=== PATIENT | female | born 1935 | race Caucasian/White ===

== ENCOUNTER 2018-01-10 09:57 | Emergency (ER) | payer MEDICARE ==
[~2018-01-10] VITALS: Ht 167.6 cm; Wt 72.5 kg
[~2018-01-10 09:57] MED LIST: ASPI81 PO; ATOR10 PO; CLOP75 PO; LEVO100T60 PO; OCUVTAB PO
[2018-01-10 10:17] VITALS: BP 145/72; PULSE 63; RESP 16; TEMP 98; O2SAT 97
--- NOTE | 2018-01-10 10:27 | PD ---
HPI . Weakness Chief Complaint: General Weakness Time Seen by Provider: 10:14 Travel History International Travel<30 days: No Contact w/Intl Traveler<30days: No Traveled to known affect area: No History of Present Illness HPI History is obtained from the patient and her daughter. Chief complaint is weakness. Onset was this morning on awakening. It is associated with a headache and nausea. She was treated per [facility] with Zofran with improvement in the nausea. No modifying factors. No other associated symptoms. PFSH Past Medical History Hx Anticoagulant Therapy: Yes (plavix) Arthritis: No Asthma: No Cancer: No High Cholesterol: Yes Chemotherapy: No Chest Pain: No Congestive Heart Failure: No COPD: No Cerebrovascular Accident: Yes Diabetes: No Diminished Hearing: No Headaches: Yes Hypertension: No Implanted Vascular Access Dvce: No Musculoskeletal: No Psychiatric: No Migraines: Yes Myocardial Infarction: No Radiation Therapy: No Seizures: No Thyroid Disease: Yes Tetanus Vaccination: > 5 Years Influenza Vaccination: Yes Menopausal: Yes Past Surgical History Abdominal Surgery: Yes Appendectomy: Yes Cardiac Surgery: No Ear Surgery: No Endocrine Surgery: No Eye Surgery: Yes (2005) Genitourinary Surgery: No Gynecologic Surgery: Yes (1964) Neurologic Surgery: No Oral Surgery: Yes Thoracic Surgery: No Tonsillectomy: Yes Other Surgery: No Social History Alcohol Use: Yes (OCCASIONAL) Tobacco Use: No Substance Use: No Allergies-Medications (Allergen,Severity, Reaction): Coded Allergies: penicillin G (Unverified Allergy, Severe, RASH, 03/18/17) Reported Meds & Prescriptions Reported Meds & Active Scripts Active Reported Atorvastatin (Atorvastatin Calcium) 10 Mg Tab 10 Mg PO HS Synthroid (Levothyroxine Sodium) 88 Mcg Tab 88 Mcg PO DAILY Plavix (Clopidogrel Bisulfate) 75 Mg Tab 75 Mg PO DAILY Review of Systems Except as stated in HPI: all other systems reviewed are Neg General / Constitutional: No: Fever, Chills Eyes: No: Blurred Vision, Photophobia HENT: Positive: Headaches Cardiovascular: No: Chest Pain or Discomfort Respiratory: No: Shortness of Breath Gastrointestinal: Positive: Nausea, No: Vomiting, Diarrhea, Abdominal Pain Genitourinary: No: Urgency, Frequency, Dysuria Neurologic: Positive: Weakness, No: Focal Abnormalities Physical Exam Narrative GENERAL: Elderly woman who is lying on the stretcher in no acute distress. SKIN: warm/dry. HEAD: Normocephalic. Atraumatic. EYES: Pupils equal and round. Extraocular movements are intact. ENT: Mucous membranes pink and moist. NECK: Supple. Full range of motion without pain.. CARDIOVASCULAR: Regular rate and rhythm. Heart sounds normal. RESPIRATORY: No accessory muscle use. Clear to auscultation. Breath sounds equal bilaterally. GASTROINTESTINAL: Abdomen soft. Nontender. Bowel sounds present. Nondistended. MUSCULOSKELETAL: No obvious deformities. Normal muscle tone. NEUROLOGICAL: Awake and alert. No obvious cranial nerve deficits. Motor grossly within normal limits. Normal speech. PSYCHIATRIC: Appropriate mood and affect; insight and judgment normal. Data Data Last Documented VS Vital Signs Date Time Temp Pulse Resp B/P (MAP) Pulse Ox O2 Delivery O2 Flow Rate FiO2 01/10/18 11:40 53 01/10/18 11:07 16 95 Room Air 01/10/18 10:20 2.00 01/10/18 10:17 98.0 Orders Orders Basic Metabolic Panel (Bmp) (01/10/18 10:23) Complete Blood Count With Diff (01/10/18 10:23) Troponin I (01/10/18 10:23) Urinalysis - C+S If Indicated (01/10/18 10:23) Ct Brain W/O Iv Contrast(Rout) (01/10/18 10:23) Iv Access Insert/Monitor (01/10/18 10:23) Sodium Chloride 0.9% Flush (Ns Flush) (01/10/18 10:30) Diphenhydramine Inj (Benadryl Inj) (01/10/18 10:30) Prochlorperazine Inj (Compazine Inj) (01/10/18 10:30) Cath For Specimen (01/10/18 11:19) Urine Culture (01/10/18 11:30) Labs Laboratory Tests Test 01/10/18 10:35 01/10/18 11:30 White Blood Count 9.5 TH/MM3 Red Blood Count 4.82 MIL/MM3 Hemoglobin 14.8 GM/DL Hematocrit 44.4 % Mean Corpuscular Volume 92.1 FL Mean Corpuscular Hemoglobin 30.6 PG Mean Corpuscular Hemoglobin Concent 33.3 % Red Cell Distribution Width 12.6 % Platelet Count 215 TH/MM3 Mean Platelet Volume 8.6 FL Neutrophils (%) (Auto) 85.3 % Lymphocytes (%) (Auto) 9.4 % Monocytes (%) (Auto) 4.1 % Eosinophils (%) (Auto) 0.9 % Basophils (%) (Auto) 0.3 % Neutrophils # (Auto) 8.1 TH/MM3 Lymphocytes # (Auto) 0.9 TH/MM3 Monocytes # (Auto) 0.4 TH/MM3 Eosinophils # (Auto) 0.1 TH/MM3 Basophils # (Auto) 0.0 TH/MM3 CBC Comment DIFF FINAL Differential Comment Blood Urea Nitrogen 12 MG/DL Creatinine 0.45 MG/DL Random Glucose 121 MG/DL Calcium Level 8.4 MG/DL Sodium Level 140 MEQ/L Potassium Level 3.9 MEQ/L Chloride Level 110 MEQ/L Carbon Dioxide Level 22.2 MEQ/L Anion Gap 8 MEQ/L Estimat Glomerular Filtration Rate 133 ML/MIN Troponin I LESS THAN 0.02 NG/ML Urine Collection Type CLEAN CATCH Urine Color YELLOW Urine Turbidity CLEAR Urine pH 6.0 Urine Specific [place] 1.020 Urine Protein NEG mg/dL Urine Glucose (UA) NEG mg/dL Urine Ketones NEG mg/dL Urine Occult Blood NEG Urine Nitrite NEG Urine Bilirubin NEG Urine Urobilinogen 0.2 MG/DL Urine Leukocyte Esterase TRACE Urine WBC 15-19 /hpf Urine WBC Clumps FEW Urine Squamous Epithelial Cells 0-5 /hpf Microscopic Urinalysis Comment CULTURE INDICATED MDM Medical Decision Making Medical Screen Exam Complete: Yes Emergency Medical Condition: Yes Medical Record Reviewed: Yes (PMH of hypothyroidism, CVA with L hemiparesis) Interpretation(s) EKG shows a normal sinus rhythm with no acute ischemic changes Differential Diagnosis Differential diagnosis of weakness includes but is not limited to infection, CVA , electrolyte disturbance, renal failure, hypoglycemia Narrative Course Patient presents with a chief complaint of just not feeling well. She also has a headache and some nausea. Her symptoms will be treated with Compazine and Benadryl. Routine labs, CT of the head and UA are pending. CBC & BMP Diagram 01/10/18 10:35 Calcium Level 8.4 L Last Impressions Head CT 01/10/18 1023 Signed Impressions: CONCLUSION: 1. No acute findings. UA>>trace LE, 15-19 WBCs, few WBC clumps She will be given a dose of Rocephin IV. She will be discharged on Keflex. Diagnosis Primary Impression: Weakness Additional Impressions: Headache Qualified Codes: G44.209 - Tension-type headache, unspecified, not intractable Urinary tract infection Qualified Codes: N39.0 - Urinary tract infection, site not specified Patient Instructions: General Instructions, Urinary Tract Infection in Women ( [place]) Med/Other Pt SpecificInfo: Prescription(s) given Scripts Cephalexin (Keflex) 500 Mg Capsule 500 MG PO TID for Infection for 7 Days, CAP 0 Refills Prov: Rosita Santoyo MD 01/10/18 Disposition: 01 DISCHARGE HOME Condition: Stable Rosita Santoyo MD Jan 10, 2018 10:27
[2018-01-10] MEDS ORDERED: diphenhydrAMINE HCL 50 MG/ML VIAL IV PUSH ONE (10:30)
[2018-01-10] MEDS ORDERED: PROCHLORPERAZINE INJ 10 MG/2 ML VIAL IV PUSH ONE (10:30)
[2018-01-10] MEDS ORDERED: SODIUM CHLORIDE 0.9% FLUSH 10 ML FLUSH IVF PRN (10:30)
[2018-01-10] MEDS ORDERED: PLAV75TA29 PO (10:50)
[2018-01-10] MEDS ORDERED: SYNT88TA PO (10:50)
[2018-01-10] MEDS ORDERED: ATOR10TA15 PO (10:50)
[2018-01-10 10:52] LABS: AUTOMATED NEUTROPHIL # 8.1 TH/MM3 (1.8-7.7); BASOPHIL % 0.3 % (0.0-2.0); EOSINOPHIL # 0.1 TH/MM3 (0-0.4); EOSINOPHIL % 0.9 % (0.0-4.0); HEMATOCRIT 44.4 % (35.0-46.0); HEMOGLOBIN 14.8 GM/DL (11.6-15.3); LYMPH % 9.4 % (9.0-44.0); LYMPHOCYTE # 0.9 TH/MM3 (1.0-4.8); MEAN CELL VOLUME 92.1 FL (80.0-100.0); MEAN CORPUSCULAR HEMOGLOBIN 30.6 PG (27.0-34.0); MEAN CORPUSCULAR HGB CONC 33.3 % (32.0-36.0); MEAN PLATELET VOLUME 8.6 FL (7.0-11.0); MONO % 4.1 % (0.0-8.0); MONOCYTE # 0.4 TH/MM3 (0-0.9); NEUT % 85.3 % (16.0-70.0); PLATELET COUNT 215 TH/MM3 (150-450); RED BLOOD COUNT 4.82 MIL/MM3 (4.00-5.30); RED CELL DISTRIBUTION WIDTH 12.6 % (11.6-17.2); WHITE BLOOD COUNT 9.5 TH/MM3 (4.0-11.0)
[2018-01-10 10:53] LABS: CHLORIDE 110 MEQ/L (98-107); SODIUM (NA) 140 MEQ/L (136-145)
[2018-01-10 10:55] LABS: CALCIUM 8.4 MG/DL (8.5-10.1)
[2018-01-10 10:56] LABS: BICARBONATE 22.2 MEQ/L (21.0-32.0); BLOOD UREA NITROGEN 12 MG/DL (7-18); GLUCOSE,RANDOM 121 MG/DL (74-106)
[2018-01-10 10:59] LABS: CREATININE 0.45 MG/DL (0.50-1.00); GLOMERULAR FILTRATION RATE 133 ML/MIN (>89)
[2018-01-10 11:04] LABS: TROPONIN I LESS THAN 0.02 NG/ML (0.02-0.05)
--- NOTE | 2018-01-10 11:04 | RADRPT ---
EXAM DATE: 01/10/2018 10:56 AM EDT AGE/SEX: 82 years / Female INDICATIONS: General weakness and headache. CLINICAL DATA: This is the patient's initial encounter. Patient reports that signs and symptoms have been present for 1 day and indicates a pain score of 3/10. MEDICAL/SURGICAL HISTORY: Cerebrovascular disease. Hypercholesterolemia. Anticoagulant therapy. A ppendectomy. RADIATION DOSE: 47.49 CTDI (mGy) COMPARISON: [facility], CT BRAIN W/O CONTRAST, 08/06/2012. . TECHNIQUE: CT of the head without contrast. Using automated exposure control and adjustment of the mA and/or kV according to patient size, radiation dose was kept as low as reasonably achievable to ob tain optimal diagnostic quality images. FINDINGS: Remote cerebellar lacunar infarcts and left basal ganglia lacunar infarct. Mild volume loss and patch y periventricular white matter disease most likely on the basis of chronic microvascular ischemic dis ease. There are no fractures. No signs of acute infarct, hemorrhage or mass. CONCLUSION: 1. No acute findings. Electronically signed by: Nicolás De Oliveira MD 01/10/2018 11:03 AM EDT
[2018-01-10 11:07] VITALS: BP 153/72; PULSE 68; RESP 16; O2SAT 95
[2018-01-10 11:40] VITALS: PULSE 53
[2018-01-10 11:43] LABS: BILIRUBIN, URINE NEG (NEG); BLOOD, URINE NEG (NEG); GLUCOSE,URINE NEG (NEG); KETONE, URINE NEG (NEG); NITRITE,URINE NEG (NEG); URINE COLOR YELLOW (YELLW/STRAW); URINE LEUKOCYTE ESTERASE TRACE (NEG)
[2018-01-10 11:49] LABS: SQUAMOUS EPITHELIAL CELL URINE 0-5 /hpf (0-5); WBC, URINE 15-19 /hpf (0-5); WHITE BLOOD CELL CLUMPS FEW
[2018-01-10] MEDS ORDERED: CEPH-460 PO (11:57)
[2018-01-10] MEDS ORDERED: cefTRIAXone INJ 1,000 MG in SODIUM CHLORIDE 0.9% INJ 100 ML IV ONE (12:00)
[2018-01-10 12:44] VITALS: BP 119/71; PULSE 74; RESP 17; O2SAT 95
--- NOTE | 2018-01-10 15:26 | EKG ---
Date Performed: 01/10/2018 Time Performed: 10:09:47 PTAGE: 82 years EKG: Sinus rhythm WITH FIRST DEGREE AV BLOCK BORDERLINE LEFT AXIS DEVIATION VOLTAGE CRITERIA FOR LVH ABNORMAL ECG PREVIOUS TRACING : 11/02/2014 10.52 Since the previous tracing, no significant change noted DOCTOR: Dustin Devine Interpretating Date/Time 01/10/2018 15:25:17
== END 2018-01-10 13:20 | disposition home or self-care (01) ==
LOC: PHED 09:57
DX: G44.209 Tension-type headache, unspecified, not intractable (principal); N39.0 Urinary tract infection, site not specified; B96.20 Unspecified Escherichia coli [E. coli] as the cause of diseases classified elsewhere; R94.31 Abnormal electrocardiogram [ECG] [EKG]; R53.1 Weakness; R11.0 Nausea; E78.00 Pure hypercholesterolemia, unspecified; Z86.73 Personal history of transient ischemic attack (TIA), and cerebral infarction without residual deficits
CPT/HCPCS: 70450; 80048; 81001; 84484; 85025; 87077; 87086; 87186; 93005; 96365; 96375; 99284; J0696; J0780